=== PATIENT | female | born 1980 | race Two or more races ===

== ENCOUNTER 2017-03-26 15:51 | Inpatient (IN) | payer OTHER ==
[~2017-03-26] VITALS: Ht 149.9 cm; Wt 70.5 kg
[2017-03-26 17:52] VITALS: BP 105/72; PULSE 98; RESP 16; TEMP 98.2; O2SAT 94
[2017-03-26] MEDS ORDERED: diphenhydrAMINE HCL 50 MG/ML VIAL - HS PRN IM (18:00)
[2017-03-26] MEDS ORDERED: ACETAMINOPHEN 325 MG TAB PO PRN (18:00)
[2017-03-26] MEDS ORDERED: diphenhydrAMINE HCL 50 MG CAP - HS PRN PO (18:00)
[2017-03-26] MEDS ORDERED: ALUMINUM/MAGNESIUM/SIMETH 30 ML CUP PO PRN (18:00)
[2017-03-26] MEDS ORDERED: MAGNESIUM HYDROXIDE SUSP 30 ML CUP PO PRN (18:00)
[2017-03-26] MEDS: REMOVE OLD NICOTINE PATCH T-DERMAL SCH (20:17)
[2017-03-26] MEDS: hydrOXYzine HCL 50 MG TAB PO PRN (20:35)
[2017-03-26 20:40] VITALS: BP 121/72; PULSE 92; RESP 18; TEMP 98.7; O2SAT 99
[2017-03-27 05:50] VITALS: BP 129/65; PULSE 71; RESP 18; TEMP 99.3; O2SAT 99
[2017-03-27] MEDS: CITALOPRAM HYDROBROMIDE 40 MG TAB PO SCH (07:48)
[2017-03-27] MEDS: NICOTINE 21 MG/24 HR PATCH T-DERMAL SCH (07:48)
--- NOTE | 2017-03-27 08:35 | HHI.HP ---
Provisional Diagnosis Admission Date Mar 26, 2017 at 17:26 [place] I. 1. Major depressive disorder, recurrent, moderate 2. Mixed anxiety disorder [place] II. Deferred [place] V. GAF 40 Certification of Person's Competence To Provide Express and Informed Consent I have personally examined Nadeen Olivier , a person being served at [facility] on, Mar 27, 2017 08:35. Express and informed consent means consent voluntarily given in writing, by a competent person, after sufficient explanation and disclosure of the subject matter involved to enable the person to make a knowing and willful decision without any element of force, fraud, deceit, duress, or other form of constraint or coercion. This person is 18 years of age or older, is not now known to be incompetent to consent to treatment with a guardian advocate, and does not have a health care surrogate or proxy currently making medical treatment decisions. I have found this person to be one of the following: [x] Competent to provide express and informed consent, as defined above, for voluntary admission to this facility and is competent to provide express and informed consent for treatment. He/she has the consistent capacity to make well reasoned, willful, and knowing decisions concerning his or her medical or mental health treatment. The person fully and consistently understands the purpose of the admission for examination/placement and is fully capable of personally exercising all rights assured under [place] Incompetent to provide express and informed consent to voluntary admission, and this is incompetent to provide express and informed consent to treatment. The person must be transferred to involuntary status and a petition for a guardian advocate filed with the Circuit Court. [] Refusing to provide express and informed consent to voluntary admission but is competent to provide express and informed consent for treatment. The person must be discharged or transferred to involuntary status. Form shall be completed within 24 hours of a person's arrival at the receiving facility and filed in the clinical record of each person: 1. Admitted on a voluntary basis 2. Permitted to provide express and informed consent to his/her own treatment 3. Allowed to transfer from involuntary to voluntary status 4. Prior to permitting a person to consent to his or her own treatment after having been previously found incompetent to consent to treatment. History of Present Illness Capacity: Has Capacity HPI Ms. Olivier is a 37 year-old female with a reported history of depression and anxiety who presents in transfer from [facility] under a Swartz act. Documentation from outside hospital reviewed. Reviewing our own electronic medical record, I note that this is the patient's first visit to [place]. Patient seen and examined with nurse. Chart reviewed. Case discussed with nursing staff. Patient reports that she has been feeling depressed over the last 2 months or so. She says that the course is worsening. Recent stressor was the anniversary of her 's suicide 9 years ago. She notes that she had several losses in that year including her brother dying by drowning and her uncle by cancer. In addition to low mood the patient endorses sleep and appetite disturbance as well as feelings of hopelessness and worthlessness. She denies any actual suicidal ideation and says that she wants to live for her children. She denies any homicidal ideation. Denies any audiovisual hallucinations. No current or prior symptoms of luis antonio/hypomania that I can elicit. She does endorse a high degree of anxiety, sometimes paroxysmal in nature but more commonly generalized, with features of chest discomfort at times. She says that her major worry is regarding her children. The remainder of the psychiatric ROS is negative. She does complain of some mild chest pain at this time but otherwise has no somatic complaints. Past psychiatric history: The patient endorses a history of depression and anxiety. She is not presently under the care of a psychiatrist. She reports a good response to Celexa at a dose of 40 mg daily in the past and says that she presented to an outside hospital emergency department 2 weeks ago and was started on Celexa 20 mg at that time. She has not seen much benefit from this agent at that dose but is tolerating it well. She says her most recent psychiatric admission was 8 years ago. She denies a history of suicide attempts. Family history: The patient denies any family history of serious mental illness , substance use disorder or suicide. Chemical dependency history: The patient denies any history of abuse of drugs or alcohol. Social history: The patient reports that she lives with her boyfriend who is supportive. She has 2 children who live in the home. She completed her [employer] year of high school. She does not presently work outside the home. She denies any or legal history. She is a [place]. Denies any access to guns or firearms. Review of Systems Except as stated in HPI: all other systems reviewed are Neg Past Psych History Psychological trauma history Besides the loss of her and associated losses, denies any other trauma history. Violence risk - others (6 mos) Lower imminent risk. Denies HI. No known h/o violence. No evidence of psychiatric disorder that would contribute to risk for violence. Violence risk - self (6 mos) Low-Moderate. Patient denies suicidal ideation but does admit to worsening depression with associated feelings of hopelessness and worthlessness. Denies a history of suicide attempts. No family history of suicide attempts. No substance use issues. Denies access to guns or firearms. Substance Abuse History Drugs/Alcohol past 12 months See above Past Family Social History Coded Allergies: No Known Allergies (Unverified , 03/26/17) Past Medical History Patient denies any medical history and takes no general medical medications she says. Current Medications Medications (Trade) Dose Ordered Sig/Kaitlyn Route Start Time Stop Time Status Last Admin (Atarax) 50 mg Q6H PRN PO 03/26/17 18:00 03/26/17 20:35 (Benadryl) 50 mg HS PRN PO 03/26/17 18:00 03/26/17 20:35 (Benadryl Inj) 50 mg HS PRN IM 03/26/17 18:00 (Tylenol) 650 mg Q4H PRN PO 03/26/17 18:00 03/26/17 20:35 (Milk Of Magnesia Liq) 30 ml DAILY PRN PO 03/26/17 18:00 (Mag-Al Plus Susp Liq) 30 ml Q6H PRN PO 03/26/17 18:00 (Habitrol 21 Mg Patch.24 Hr) 1 patch DAILY T-DERMAL 03/27/17 09:00 03/27/17 07:48 Miscellaneous Information 1 HS T-DERMAL 03/26/17 21:00 (CeleXA) 40 mg DAILY PO 03/27/17 09:00 03/27/17 07:48 Family History See above Social History See above Patient's Strengths (min. 2) In a monitored setting. Verbally fluent. Physical Exam Physical exam completed at outside hospital ED. On my examination today, the patient appears to be in no acute physical distress. No motoric abnormalities noted. Steady gait and station. Labs and vitals reviewed: Vital Signs Vital Signs Date Time Temp Pulse Resp B/P (MAP) Pulse Ox O2 Delivery O2 Flow Rate FiO2 03/27/17 05:50 99.3 71 18 129/65 (86) 99 Lab Results Laboratories from outside hospital reviewed: test negative Urinalysis revealed small blood Toxicology negative CBC reveals white blood cell count of 10.4 CMP unremarkable Alcohol level less than 10 Mental Status Examination Patient is casually attired. She is well groomed. She is awake and alert and oriented to person and hospital at least. No evidence of delirium. No motor abnormalities noted. Speech is within normal limits for rate, tone and volume. Language and fund of knowledge average. Focus and concentration fairly intact. Memory grossly intact on clinical exam. Mood depressed and affect restricted. Thought process linear. No loosening of associations. No delusions elicited. Denies audiovisual hallucinations. Denies suicidal or homicidal ideation. Insight and judgment are fair. Assessment & Plan Problem List: (1) Major depressive disorder, recurrent, moderate ICD Codes: F33.1 - Major depressive disorder, recurrent, moderate Status: Acute (2) Other mixed anxiety disorders ICD Codes: F41.3 - Other mixed anxiety disorders Status: Acute Assessment & Plan This is a 37-year-old female with psychiatric history as detailed above who presents in transfer from outside hospital under a Swartz act. On my examination today, the patient reports approximately 2 months of worsening mood complicated by the recent anniversary of her 's suicide. She was recently restarted on Celexa at a lower dose than she had previously responded to. I think it is reasonable at this juncture to admit the patient to the inpatient psychiatric unit for the purpose of the medication adjustment and also to monitor for any impairments in safety, although the patient is presently denying suicidal ideation. Admit inpatient. Voluntary status. Check TFTs. Check EKG and cardiac enzymes x 1 given complaints of chest discomfort [update: EKG read sinus rhythm with QTc 412ms. CE negative. TFTs wnl]. Consult to the hospitalist for chest discomfort. Titrate Celexa to 40 mg daily for mood. Atarax as needed for anxiety, trazodone as needed for sleep. Transfer to 2600 unit. Vitals every shift. Counselor to see. Disposition planning. Estimated length of stay: 5-7 days. Discharge Planning Pending stabilization Request HC Surrog/Guard Advoc?: No Jg rSivastava MD Mar 27, 2017 08:35
[2017-03-27] MEDS ORDERED: traZODone HCL 50 MG TAB PO PRN (08:45)
[2017-03-27 09:54] LABS: ANION GAP 9 MEQ/L (5-15); BICARBONATE 25.9 MEQ/L (21.0-32.0); BLOOD UREA NITROGEN 9 MG/DL (7-18); CHLORIDE 102 MEQ/L (98-107); GLOMERULAR FILTRATION RATE 75 ML/MIN (>89); POTASSIUM 3.9 MEQ/L (3.5-5.1); SODIUM (NA) 137 MEQ/L (136-145)
[2017-03-27 10:04] LABS: HDL CHOLESTEROL 26.8 MG/DL (40.0-60.0)
[2017-03-27 10:29] LABS: AUTOMATED NEUTROPHIL # 5.9 TH/MM3 (1.8-7.7); BASOPHIL % 0.5 % (0.0-2.0); EOSINOPHIL # 0.1 TH/MM3 (0-0.4); EOSINOPHIL % 1.1 % (0.0-4.0); HEMATOCRIT 43.6 % (35.0-46.0); HEMO FLAGS DIFF FINAL; LYMPH % 28.8 % (9.0-44.0); LYMPHOCYTE # 2.6 TH/MM3 (1.0-4.8); MEAN CELL VOLUME 82.5 FL (80.0-100.0); MEAN CORPUSCULAR HEMOGLOBIN 27.4 PG (27.0-34.0); MEAN CORPUSCULAR HGB CONC 33.3 % (32.0-36.0); MONO % 3.8 % (0.0-8.0); NEUT % 65.8 % (16.0-70.0); PLATELET COUNT 343 TH/MM3 (150-450); RED BLOOD COUNT 5.28 MIL/MM3 (4.00-5.30); RED CELL DISTRIBUTION WIDTH 14.2 % (11.6-17.2)
[2017-03-27 10:43] LABS: CREATINE KINASE 37 U/L (26-192)
[2017-03-27 10:46] LABS: FREE T4 1.04 NG/DL (0.76-1.46)
[2017-03-27 17:12] LABS: BHCG SCREEN QUALITATIVE 1 MIU/ML (0-5)
--- NOTE | 2017-03-27 17:31 | PD.CONS ---
HPI Service [facility] Consult Requested By Psychiatry team Reason for Consult Chest pain Primary Care Physician Unknown Diagnoses: History of Present Illness Written by Kenroy Villa, acting as scribe for Dr. Jack on 03/27/17 at 17: 20. Patient is a 37-year-old female with no known primary medical history except for anxiety, depression who came in to the hospital for suicidal ideation. She is now admitted to inpatient psychiatry unit for further evaluation. Consulted for complaints of chest pain. Patient seen and examined today. Reports she has been having chest pain this started about 2-3 weeks ago, not associated with nausea, vomiting, dizziness, diaphoresis. States chest pain located across her chest, rated 7/10, sharp, intermittent, aggravated by anxiety, relieved by hunching her shoulders. Denies SOB/ dyspnea. Denies chest pain, palpitations, headaches, dizziness. Denies fevers, chills, n/v/d. Denies dysuria. Review of Systems Except as stated in HPI: all other systems reviewed are Neg Past Family Social History Allergies: Coded Allergies: No Known Allergies (Unverified , 03/26/17) Past Medical History Depression Anxiety Past Surgical History None Reported Medications None Active Ordered Medications Current Medications Medications (Trade) Dose Ordered Sig/Kaitlyn Route Start Time Stop Time Status Last Admin (Atarax) 50 mg Q6H PRN PO 03/26/17 18:00 03/26/17 20:35 (Tylenol) 650 mg Q4H PRN PO 03/26/17 18:00 03/26/17 20:35 (Milk Of Magnesia Liq) 30 ml DAILY PRN PO 03/26/17 18:00 (Mag-Al Plus Susp Liq) 30 ml Q6H PRN PO 03/26/17 18:00 (Habitrol 21 Mg Patch.24 Hr) 1 patch DAILY T-DERMAL 03/27/17 09:00 03/27/17 07:48 Miscellaneous Information 1 HS T-DERMAL 03/26/17 21:00 (CeleXA) 40 mg DAILY PO 03/27/17 09:00 03/27/17 07:48 (Desyrel) 50 mg HS PRN PO 03/27/17 08:45 Family History Patient is adopted, unknown family medical history Social History States she is a . No known allergies. Rare alcohol use Current smoker, half a pack to 1 pack per day for almost 12 years Denies illicit drug use Physical Exam Vital Signs Vital Signs Date Time Temp Pulse Resp B/P (MAP) Pulse Ox O2 Delivery O2 Flow Rate FiO2 03/27/17 05:50 99.3 71 18 129/65 (86) 99 03/26/17 20:40 98.7 92 18 121/72 (88) 99 03/26/17 17:52 98.2 98 16 105/72 (83) 94 Physical Exam GENERAL: This is an obese, well-developed patient, in no apparent distress. SKIN: No rashes, ecchymoses or lesions. Cool and dry. HEAD: Normocephalic. EYES: Pupils equal round and reactive. Extraocular motions intact. No scleral icterus. No injection or drainage. ENT: Nose without bleeding. Throat without erythema. Uvula midline. Airway patent. NECK: Trachea midline. No JVD or lymphadenopathy. Supple, nontender, no meningeal signs. CARDIOVASCULAR: Regular rate and rhythm without murmurs, gallops, or rubs. RESPIRATORY: Clear to auscultation. Breath sounds equal bilaterally. No wheezes , rales, or rhonchi. Tenderness to palpate across substernal area. GASTROINTESTINAL: Abdomen soft, non-tender, nondistended. No guarding. Bowel sounds active 4. MUSCULOSKELETAL: Extremities without clubbing, cyanosis, or edema. NEUROLOGICAL: Awake and alert. Cranial nerves II through XII intact. Motor and sensory grossly within normal limits. Five out of 5 muscle strength in all muscle groups. Normal speech. Laboratory Laboratory Tests Test 03/27/17 08:12 03/27/17 16:26 White Blood Count 9.0 Red Blood Count 5.28 Hemoglobin 14.5 Hematocrit 43.6 Mean Corpuscular Volume 82.5 Mean Corpuscular Hemoglobin 27.4 Mean Corpuscular Hemoglobin Concent 33.3 Red Cell Distribution Width 14.2 Platelet Count 343 Mean Platelet Volume 9.2 Neutrophils (%) (Auto) 65.8 Lymphocytes (%) (Auto) 28.8 Monocytes (%) (Auto) 3.8 Eosinophils (%) (Auto) 1.1 Basophils (%) (Auto) 0.5 Neutrophils # (Auto) 5.9 Lymphocytes # (Auto) 2.6 Monocytes # (Auto) 0.3 Eosinophils # (Auto) 0.1 Basophils # (Auto) 0.0 CBC Comment DIFF FINAL Differential Comment Blood Urea Nitrogen 9 Creatinine 0.86 Random Glucose 120 Calcium Level 9.8 Sodium Level 137 Potassium Level 3.9 Chloride Level 102 Carbon Dioxide Level 25.9 Anion Gap 9 Estimat Glomerular Filtration Rate 75 Total Creatine Kinase 37 Troponin I LESS THAN 0.02 LESS THAN 0.02 Triglycerides Level 432 Cholesterol Level 200 LDL Cholesterol HDL Cholesterol 26.8 Cholesterol/HDL Ratio 7.46 Free Thyroxine 1.04 Thyroid Stimulating Hormone 3rd Gen 0.615 Beta HCG, Qualitative 1 Result Diagram: 03/27/1781103/27/17811 Assessment and Plan Problem List: (1) Other mixed anxiety disorders ICD Code: F41.3 - Other mixed anxiety disorders Status: Acute (2) Major depressive disorder, recurrent, moderate ICD Code: F33.1 - Major depressive disorder, recurrent, moderate Status: Acute Assessment and Plan Patient is a 37-year-old female with no known primary medical history except for anxiety, depression who came in to the hospital for suicidal ideation. She is now admitted to inpatient psychiatry unit for further evaluation. Consulted for complaints of chest pain. Chest pain, atypical - Possible pleuritic pain as tenderness is reproducible by palpation, also might be related to anxiety - First troponin 0.02. Repeat second troponin 0.02 - EKG reviewed by me, SR, No ST changes. - Chest xray ordered, follow up results - Tylenol, ibuprofen for pain - Protonix 40mg - Recheck labs in am Depression, anxiety - Managed by psychiatry team Tobacco use - Patient is counseled regarding the risk of smoking including and not limited to - Nicotine patch DVT Prop low risk, patient is ambulatory Code Status Full code Discussed Condition With Patient, nursing This note was transcribed by donell Jasmine. I, Dr. César Villafuerte personally performed the history, physical exam, and medical decision making; and confirmed the accuracy of the information in the transcribed note. Authenticated by Dr. César Villafuerte on 03/27/17 at 17:32. Kenroy Grant Mar 27, 2017 17:31 César Rutledge MD Mar 27, 2017 17:32
[2017-03-27] MEDS: IBUPROFEN 400 MG TAB PO SCH ×2 (17:45→21:09)
[2017-03-27] MEDS: PANTOPRAZOLE SOD 40 MG DELAYED RELEASE TAB PO SCH (17:45)
[2017-03-27 18:11] LABS: HEMOGLOBIN A1a 1.1 %; HEMOGLOBIN A1b 1.6 %; HEMOGLOBIN P3 3.5 %
[2017-03-27 18:17] VITALS: BP 125/76; PULSE 82; RESP 18; TEMP 97.8; O2SAT 98
[2017-03-27] MEDS: REMOVE OLD NICOTINE PATCH T-DERMAL SCH (20:19)
--- NOTE | 2017-03-27 22:37 | RADRPT ---
EXAM DATE/TIME: 03/27/2017 21:43 [place] COMPARISON: No previous studies available for comparison. INDICATIONS : Chest pain. MEDICAL HISTORY : None. SURGICAL HISTORY : None. ENCOUNTER: Initial ACUITY: 2 days PAIN SCORE: 5/10 LOCATION: Bilateral chest FINDINGS: PA and lateral views of the chest demonstrate a normal-sized cardiac silhouette. There is no effusion , consolidation, or pneumothorax. The bones and soft tissues demonstrate no acute abnormality. CONCLUSION: No acute cardiopulmonary abnormality is identified. Philip Boyer MD on March 27, 2017 at 22:35 Board Certified Radiologist. This report was verified electronically.
[2017-03-28] MEDS: IBUPROFEN 400 MG TAB PO SCH ×3 (06:00→21:31)
[2017-03-28 06:09] VITALS: BP 106/62; PULSE 81; RESP 17; TEMP 97.3; O2SAT 96
[2017-03-28] MEDS: NICOTINE 21 MG/24 HR PATCH T-DERMAL SCH (09:00)
[2017-03-28] MEDS: PANTOPRAZOLE SOD 40 MG DELAYED RELEASE TAB PO SCH (09:10)
[2017-03-28] MEDS: CITALOPRAM HYDROBROMIDE 40 MG TAB PO SCH (09:10)
--- NOTE | 2017-03-28 12:37 | HHI.PR ---
Subjective Remarks Follow up visit chest pain. Tearful, psychiatry staff at bedside. Discuss with patient results of labs and cxr, plan and management. States she doesn't know if the tylenol or ibuprofen is working. Objective Vitals Vital Signs Date Time Temp Pulse Resp B/P (MAP) Pulse Ox O2 Delivery O2 Flow Rate FiO2 03/28/17 06:09 97.3 81 17 106/62 (77) 96 03/27/17 18:17 97.8 82 18 125/76 (92) 98 Result Diagram: 03/27/17 0812 03/27/17 0812 Imaging Current Medications Medications (Trade) Dose Ordered Sig/Kaitlyn Route Start Time Stop Time Status Last Admin (Atarax) 50 mg Q6H PRN PO 03/26/17 18:00 03/26/17 20:35 (Tylenol) 650 mg Q4H PRN PO 03/26/17 18:00 03/26/17 20:35 (Milk Of Magnesia Liq) 30 ml DAILY PRN PO 03/26/17 18:00 (Mag-Al Plus Susp Liq) 30 ml Q6H PRN PO 03/26/17 18:00 (Habitrol 21 Mg Patch.24 Hr) 1 patch DAILY T-DERMAL 03/27/17 09:00 03/27/17 07:48 Miscellaneous Information 1 HS T-DERMAL 03/26/17 21:00 03/27/17 20:19 (CeleXA) 40 mg DAILY PO 03/27/17 09:00 03/28/17 09:10 (Desyrel) 50 mg HS PRN PO 03/27/17 08:45 (Motrin) 400 mg Q8HR PO 03/27/17 17:45 03/30/17 17:44 03/28/17 06:00 (Protonix) 40 mg DAILY PO 03/27/17 17:45 03/28/17 09:10 Objective Remarks GENERAL: This is a obese, well-developed patient, tearful. CARDIOVASCULAR: Regular rate and rhythm without murmurs, gallops, or rubs. RESPIRATORY: Clear to auscultation. Breath sounds equal bilaterally. No wheezes , rales, or rhonchi. GASTROINTESTINAL: Abdomen soft, non-tender, nondistended. Normal active bowel sounds MUSCULOSKELETAL: Extremities without clubbing, cyanosis, or edema. NEURO: Alert & Oriented to person, place, situation. Moves all ext x4. A/P Problem List: (1) Other mixed anxiety disorders ICD Code: F41.3 - Other mixed anxiety disorders Status: Acute (2) Major depressive disorder, recurrent, moderate ICD Code: F33.1 - Major depressive disorder, recurrent, moderate Status: Acute Assessment and Plan Patient is a 37-year-old female with no known primary medical history except for anxiety, depression who came in to the hospital for suicidal ideation. She is now admitted to inpatient psychiatry unit for further evaluation. Consulted for complaints of chest pain. Chest pain, atypical - Possible pleuritic pain as tenderness is reproducible by palpation, also might be related to anxiety - Troponin 0.02 --> 0.02 - EKG reviewed SR, No ST changes. - Chest xray ordered, no acute cardiopulmonary abnormality is identified - Tylenol, ibuprofen for pain - Protonix 40mg - Discuss results with patient Depression, anxiety - Managed by psychiatry team Tobacco use - Patient is counseled regarding the risk of smoking including and not limited to - Nicotine patch DVT Prop low risk, patient is ambulatory Discuss with patient, nursing, Dr. Hortensia Mckenna from medical standpoint. We will sign off. Please consult us if need. Thank you. Kenroy Grant Mar 28, 2017 12:37
[2017-03-28] MEDS: hydrOXYzine HCL 50 MG TAB PO PRN (12:38)
--- NOTE | 2017-03-28 14:50 | HHI.PYPN ---
Subjective Remarks Patient seen and examined with nurse. Chart reviewed. Case discussed with nursing staff. On my examination today, patient continues to complain of anxiety, although she does note that the Atarax is helpful when used as needed for this purpose. Mood remains somewhat low. Not sleeping well related to anxiety. We discussed scheduling the trazodone as she did not receive a dose last night, and she is agreeable to this. Denies SI or HI. Denies side effects from medications. No new physical complaints. Review of Systems Except as stated in HPI: all other systems reviewed are Neg Objective Alert: Yes [place]: Person, Place, Date, Situation Mood: Anxious, Depressed Affect: Blunted Memory Intact: Comment (intact) Hallucinations: Other (no AVH) Delusions: No Delusion Type: Other (no delusions) Suicidal: Ideation (denies SI) Homicidal: Ideation (denies HI) Insight/Judgment Fair Remarks Thought process linear. No motor abnormalities noted. Grooming and hygiene at least fair. Labs Test 03/27/17 16:26 Troponin I LESS THAN 0.02 NG/ML Beta HCG, Qualitative 1 MIU/ML Labs reviewed. Vitals/IOs Vital Signs Date Time Temp Pulse Resp B/P (MAP) Pulse Ox O2 Delivery O2 Flow Rate FiO2 03/28/17 06:09 97.3 81 17 106/62 (77) 96 Assessment & Plan Problem List: (1) Major depressive disorder, recurrent, moderate ICD Codes: F33.1 - Major depressive disorder, recurrent, moderate Status: Acute (2) Other mixed anxiety disorders ICD Codes: F41.3 - Other mixed anxiety disorders Status: Acute Assessment & Plan Scheduled trazodone at bedtime. Continue Celexa as ordered. Continue Atarax as needed for anxiety. Hospitalist input appreciated. Continue to monitor on the inpatient unit. Continue other medications and care as ordered. Justification for Cont. Inpt. Medication changes. Discharge Planning Possible discharge by the end of the week Request HC Surrog/Guard Advoc?: No Jg Srivastava MD Mar 28, 2017 14:50
[2017-03-28 18:00] VITALS: BP 118/78; PULSE 77; RESP 17; TEMP 98.7; O2SAT 98
--- NOTE | 2017-03-28 20:09 | EKG ---
Date Performed: 03/27/2017 Time Performed: 11:08:02 PTAGE: 37 years EKG: Sinus rhythm NONSPECIFIC T-WAVE ABNORMALITY BORDERLINE ECG NO PREVIOUS TRACING DOCTOR: Judy Multani Interpretating Date/Time 03/28/2017 20:08:23
[2017-03-28] MEDS: REMOVE OLD NICOTINE PATCH T-DERMAL SCH (21:00)
[2017-03-28] MEDS: traZODone HCL 50 MG TAB PO SCH (21:29)
[2017-03-29] MEDS: IBUPROFEN 400 MG TAB PO SCH ×3 (06:00→22:01)
[2017-03-29 06:05] VITALS: BP 120/56; PULSE 66; RESP 16; TEMP 98.3; O2SAT 96
[2017-03-29] MEDS: NICOTINE 21 MG/24 HR PATCH T-DERMAL SCH (09:00)
[2017-03-29] MEDS: PANTOPRAZOLE SOD 40 MG DELAYED RELEASE TAB PO SCH (09:41)
[2017-03-29] MEDS: CITALOPRAM HYDROBROMIDE 40 MG TAB PO SCH (09:41)
--- NOTE | 2017-03-29 12:26 | HHI.PYPN ---
Subjective Remarks Patient seen and examined with counselor. Chart reviewed. Case discussed with nursing staff. Patient participating more in unit activities. We find the patient in project group. She reports on exam that she slept better overnight with the addition of trazodone on a scheduled basis. Mood continues to slowly improve. Denies suicidal ideation. Continues to struggle with some degree of anxiety, and we discuss her pharmacotherapeutic options with regards to management of this problem, such as addition of BuSpar among other options, but the patient prefers to continue with her current regimen for now. Denies side effects from medications. No physical complaints. Review of Systems Except as stated in HPI: all other systems reviewed are Neg Objective Alert: Yes [place]: Person, Place, Date, Situation Mood: Anxious, Depressed (improving) Affect: Blunted (more reactive) Memory Intact: Comment (intact) Hallucinations: Other (no AVH) Delusions: No Delusion Type: Other (no delusional material) Suicidal: Ideation (denies SI) Homicidal: Ideation (no HI) Insight/Judgment fair Remarks No motor abnormalities noted. Steady gait and station. Grooming and hygiene good. Thought process linear. Labs Labs reviewed. Vitals/IOs Vital Signs Date Time Temp Pulse Resp B/P (MAP) Pulse Ox O2 Delivery O2 Flow Rate FiO2 03/29/17 06:05 98.3 66 16 120/56 (77) 96 Intake and Output 03/29/17 03/29/17 03/29/17 07:59 15:59 23:59 Intake Total 240 ml Balance 240 ml Assessment & Plan Problem List: (1) Major depressive disorder, recurrent, moderate ICD Codes: F33.1 - Major depressive disorder, recurrent, moderate Status: Acute (2) Other mixed anxiety disorders ICD Codes: F41.3 - Other mixed anxiety disorders Status: Acute Assessment & Plan Continue Celexa as ordered. Continue trazodone. Continue other psychotropics as ordered. Hospitalist team has evaluated the patient and deemed her stable and signed off. Continue other medications and care as ordered. Justification for Cont. Inpt. monitoring for response to medications Discharge Planning Possible discharge tomorrow, Sunday Request HC Surrog/Guard Advoc?: No Jg Srivastava MD Mar 29, 2017 12:26
[2017-03-29 19:00] VITALS: BP 123/70; PULSE 80; RESP 18; TEMP 98.7; O2SAT 96
[2017-03-29] MEDS: REMOVE OLD NICOTINE PATCH T-DERMAL SCH (21:00)
[2017-03-29] MEDS: hydrOXYzine HCL 50 MG TAB PO PRN (22:01)
[2017-03-29] MEDS: traZODone HCL 50 MG TAB PO SCH (22:01)
[2017-03-30 05:52] VITALS: BP 111/65; PULSE 71; RESP 16; TEMP 98.1; O2SAT 98
[2017-03-30] MEDS: IBUPROFEN 400 MG TAB PO SCH ×2 (06:00→14:12)
[2017-03-30] MEDS: CITALOPRAM HYDROBROMIDE 40 MG TAB PO SCH (09:00)
[2017-03-30] MEDS: NICOTINE 21 MG/24 HR PATCH T-DERMAL SCH (09:00)
[2017-03-30] MEDS: PANTOPRAZOLE SOD 40 MG DELAYED RELEASE TAB PO SCH (09:00)
[2017-03-30] MEDS ORDERED: CELE40TA PO (13:29)
[2017-03-30] MEDS ORDERED: HYDR50TA94 PO (13:29)
[2017-03-30] MEDS ORDERED: TRAZ50TA12 PO (13:29)
[2017-03-30] MEDS ORDERED: PANT40TA3 PO (13:29)
--- NOTE | 2017-03-30 13:30 | HHI.DS ---
Psychiatry Discharge Summary Inpatient Psychiatric care?: Yes Advance Directive: No Reason Not Provided: Due to Patient Condition Mental Health AdvanceDirective: No Health Care Proxy: No Admission Admission Date Mar 26, 2017 at 17:26 Admission Diagnosis: (1) Major depressive disorder, recurrent, moderate ICD Code: F33.1 - Major depressive disorder, recurrent, moderate (2) Other mixed anxiety disorders ICD Code: F41.3 - Other mixed anxiety disorders Brief History Ms. Olivier is a 37 year-old female with a reported history of depression and anxiety who presents in transfer from [facility] under a Swartz act. Documentation from outside hospital reviewed. Reviewing our own electronic medical record, I note that this is the patient's first visit to [facility]. Patient seen and examined with nurse. Chart reviewed. Case discussed with nursing staff. Patient reports that she has been feeling depressed over the last 2 months or so. She says that the course is worsening. Recent stressor was the anniversary of her 's suicide 9 years ago. She notes that she had several losses in that year including her brother dying by drowning and her uncle by cancer. In addition to low mood the patient endorses sleep and appetite disturbance as well as feelings of hopelessness and worthlessness. She denies any actual suicidal ideation and says that she wants to live for her children. She denies any homicidal ideation. Denies any audiovisual hallucinations. No current or prior symptoms of luis antonio/hypomania that I can elicit. She does endorse a high degree of anxiety, sometimes paroxysmal in nature but more commonly generalized, with features of chest discomfort at times. She says that her major worry is regarding her children. The remainder of the psychiatric ROS is negative. She does complain of some mild chest pain at this time but otherwise has no somatic complaints. Past psychiatric history: The patient endorses a history of depression and anxiety. She is not presently under the care of a psychiatrist. She reports a good response to Celexa at a dose of 40 mg daily in the past and says that she presented to an outside hospital emergency department 2 weeks ago and was started on Celexa 20 mg at that time. She has not seen much benefit from this agent at that dose but is tolerating it well. She says her most recent psychiatric admission was 8 years ago. She denies a history of suicide attempts. Family history: The patient denies any family history of serious mental illness , substance use disorder or suicide. Chemical dependency history: The patient denies any history of abuse of drugs or alcohol. Social history: The patient reports that she lives with her boyfriend who is supportive. She has 2 children who live in the home. She completed her [employer] year of high school. She does not presently work outside the home. She denies any or legal history. She is a [place]anda[place]. Denies any access to guns or firearms. Tobacco Use In Past 30 Days: 5 or More Cigarettes/Day Alcohol Use: Monthly or Less Hospital Course Patient was admitted to a locked, inpatient psychiatric unit. A general medical consultation was obtained. Appropriate precautions were in place throughout patient's hospital stay. Patient was seen and examined daily on the unit by psychiatry and also visited by counselor. Psychotropic medications were adjusted. Patient tolerated medications well without side effects. Patient had improvement in presenting psychiatric symptomatology. There was no evidence of any suicidality or homicidality on the inpatient unit. The patient remained in good behavioral control and was medication compliant. On the day of discharge: Patient seen and examined with nurse. Chart reviewed. Case discussed with nursing staff. No behavioral issues noted overnight. On my examination today, the patient reports that her mood is improved versus admission. She is requesting discharge from the inpatient psychiatric unit today. She denies any suicidal or homicidal ideation, intent or plan on direct questioning and contracts for safety. She says that she has found support with her peers on the unit and also now feels that her boyfriend understands how to help her with her mental illness. Depressive symptoms improved versus admission. No hypomanic or manic symptoms. No hallucinations or delusions. Denies side effects from medications. No physical complaints. Weighing the acute, chronic, and protective factors and based on the available evidence, I dressage judge to a reasonable degree of medical certainty that the patient is at low imminent risk of harm to self or others from a mental illness as defined under the Swartz act, and her level of function is adequate for outpatient care. The patient has maximized benefit from this inpatient psychiatric hospital stay will be discharged today with psychiatric follow-up as arranged by counselor. Patient is also to follow-up with primary care. I have counseled the patient regarding warning signs for need to return to the psychiatric emergency room as part of the general safety plan. Results Blood Pressure 111 / 65 Vital Signs Date Time Temp Pulse Resp B/P (MAP) Pulse Ox O2 Delivery O2 Flow Rate FiO2 03/30/17 05:52 98.1 71 16 111/65 (80) 98 Laboratory Tests Test 03/27/17 16:26 Troponin I LESS THAN 0.02 NG/ML Laboratory Results Test 03/27/17 08:12 Cholesterol Level 200 MG/DL (120-200) HDL Cholesterol 26.8 MG/DL (40.0-60.0) Hemoglobin A1c 5.4 % (4.3-6.0) LDL Cholesterol MG/DL (0-99) Triglycerides Level 432 MG/DL (42-150) Summary of Procedures None done Imaging Last Impressions Chest X-Ray 03/27/17 0000 Signed Impressions: Service Date/Time: Monday, March 27, 2017 21:43 - CONCLUSION: No acute cardiopulmonary abnormality is identified. Philip Boyer MD Pending results at discharge: No Medications # of Antipsychotic meds at D/C: 0 Approp Antipsych med options 1 - Minimum of three failed multiple trials of monotherapy. 2 - Documented plan to taper to monotherapy due to previous use of multiple meds OR cross-taper in progress at D/C. 3 - Documentation of augmentation of Clozapine. 4 - Justification other than those listed in allowable values 1-3, document here : Discharge Discharge Date: Mar 30, 2017 Discharge Diagnosis: (1) Major depressive disorder, recurrent, moderate Diagnosis: Principal (improved versus admission) ICD Code: F33.1 - Major depressive disorder, recurrent, moderate Status: Acute (2) Other mixed anxiety disorders Diagnosis: Secondary (improved versus admission) ICD Code: F41.3 - Other mixed anxiety disorders Status: Acute Mental Status Exam at Disch Patient is casually dressed. Patient is well groomed. Patient is awake and alert and oriented to person and hospital at least. No evidence of delirium. No motor abnormalities appreciated. Speech is within normal limits for rate, tone, volume. Language and fund of knowledge average. Focus and concentration intact. Memory grossly intact on clinical exam. Mood is much improved versus admission. Affect is full and reactive. Thought process linear. No delusions elicited. Denies audiovisual hallucinations and does not appear internally stimulated. Denies suicidal or homicidal ideation, intent, or plan and contracts for safety. Insight and judgment seem fair. Pt Condition on Discharge: Stable Discharge Disposition: Discharge Home Discharge Instructions Diet Instructions: As Tolerated, No Restrictions Activities you can perform: Weight Bearing as Ashley Scheduled Appointment: as per counselor's notes New Medications: Citalopram (Celexa) 40 Mg Tab 40 MG PO DAILY for Mental Health for 15 Days, TAB 1 Refill Hydroxyzine HCl (Hydroxyzine HCl) 50 Mg Tab 50 MG PO Q6H PRN for ANXIETY for 15 Days, TAB 1 Refill Pantoprazole (Pantoprazole) 40 Mg Tab 40 MG PO DAILY for Health for 15 Days, TAB 1 Refill Trazodone (Trazodone) 50 Mg Tab 50 MG PO HS for Sleep for 15 Days, TAB 1 Refill Discharge Time <= 30 minutes Discharge/Advance Care Plan Health Problems: (1) Major depressive disorder, recurrent, moderate (2) Other mixed anxiety disorders Goals to promote your health * To prevent worsening of your condition and complications * To maintain your health at the optimal level Directions to meet your goals Take your medications as prescribed Follow your dietary instruction Follow activity as directed Keep your appointments as scheduled Take your immunizations and boosters as scheduled If your symptoms worsen call your PCP, if no PCP go to Urgent Care Center or Emergency Room For 26/02 questions related to your inpatient stay or results of tests pending at discharge, please contact Dr. Jg Srivastava at Smoking is Dangerous to Your Health. Avoid second hand smoking Jg Srivastava MD Mar 30, 2017 13:30
== END 2017-03-30 17:00 | disposition home or self-care (01) | DRG 885 ==
LOC: H270 17:26 → H260 03-27 12:54
PROVIDERS: ADMIT Psychiatry & Neurology Psychiatry; ATTEND Psychiatry & Neurology Psychiatry
DX: F33.1 Major depressive disorder, recurrent, moderate (principal); F41.3 Other mixed anxiety disorders; R07.89 Other chest pain; F17.210 Nicotine dependence, cigarettes, uncomplicated
CPT/HCPCS: 71020; 80048; 80061; 82550; 83036; 84439; 84443; 84484; 84703; 85025; 93005; Q0163